=== PATIENT | male | born 1975 ===

== ENCOUNTER 2024-03-15 11:09 | Outpatient (AMB) | payer OTHER, SELFPAY ==
--- NOTE | 2024-03-15 11:17 | A.OFFVIS_ITS ---
Vital Signs 03/15/24 11:26 Height 6 ft 1 in Weight 181 lb 3.52 oz BMI 23.9 BP 120/84 Blood Pressure Location Rt brachial Position Sitting Pulse 74 Pulse Source Pulse Oximeter Pulse Oximetry (%) 100 Oxygen Delivery Method Room Air Intake Visit Reasons: hep c screening Intake Note: Russell presents in office today for a scheduled initial assessment. CC; Pt denies any previous hx of colo. Pt is being seen today for a colo consult as well as hep C screening. Pt denies any sx or concerns at this time that would otherwise warrant a colo. Medical Supervisor Required: No Allergies No Known Allergies Allergy (Verified 03/15/24 11:26) HPI Comments Details: 49 y.o M with PMH of Afib s/p ablation in 2021 not anticoagulation who is referred for colo screen and hep C screen . Pt otherwise is well. No abd pain, N,V, rectal bleeding, diarrhea or un intentional weight loss. No fam hx of colorectal ca in FDRs. In terms of HCV screening, he is unsure why he was referred specifically for that. No high risk behavior or hx of exposure. PFSH Medical History Electrical isolation of left atrial appendage after cardiac ablation procedure for atrial fibrillation A-fib Surgical History History of tonsillectomy Social History Alcohol intake: never Patient Tobacco Use Status: Never used Tobacco Review of Systems Const All systems reviewed & are unremarkable except as noted in HPI and below Physical Exam Vital Signs: Last Vital Signs Pulse 74 03/15/24 11:26 BP 120/84 03/15/24 11:26 Pulse Ox 100 03/15/24 11:26 Oxygen Delivery Method Room Air 03/15/24 11:26 BMI result Body Mass Index 23.9 No apparent distress Nonicteric Abdomen soft, nondistended Alert and oriented x3, normal gait Assessment & Plan Assessment & Plan (1) Encounter for colorectal cancer screening: Code(s): Z12.11 - Encounter for screening for malignant neoplasm of colon; Z12.12 - Encounter for screening for malignant neoplasm of rectum Category: Medical (2) Encounter for hepatitis C screening test for low risk patient: Code(s): Z11.59 - Encounter for screening for other viral diseases Category: Medical Plan At average risk. Discussed both one step and two step screening with pt and he opts for one step i.e colonoscopy. This will be set up on elective basis. Plan: - PEG prep Rxed and instructions reviewed - Pt not on DM meds or blood thinners - [place] to be booked In terms of HCV screening, discussed that from referral notes PCP has already ordered HCV Ab, if thats negative, no further work up is needed. Follow up as needed after colo Medications: New peg 3350-electrolytes 236-22.74-6.74 -5.86 gram (Golytely) as per split prep instructions, until fecal effluent is clear 240 mL PO Q10M 4,000 mL 0RF colonoscopy Coding Level of Care Code New Pt Level 3 (52784) Diagnoses Encounter for colorectal cancer screening Z12.11; Z12.12 Encounter for hepatitis C screening test for low risk patient Z11.59
[2024-03-15 11:26] VITALS: BP 120/84; PULSE 74; O2SAT 100; BMI 23.9
== END 2024-03-15 12:34 | disposition home or self-care (01) ==
PROVIDERS: PCP Family Medicine; Visit Provider Internal Medicine
DX: Z01.818 Encounter for other preprocedural examination (principal); Z12.11 Encounter for screening for malignant neoplasm of colon; Z12.12 Encounter for screening for malignant neoplasm of rectum
CPT/HCPCS: S0285

== ENCOUNTER 2024-08-05 06:07 | Day surgery (SDC) | payer OTHER, SELFPAY ==
[2024-08-03 06:47] VITALS: BMI 23.9
--- NOTE | 2024-08-04 08:44 | HO.ANESPROP2 ---
HPI - Anesthesia Eval Consult details Narrative: 49yo M for Colonoscopy Afib s/p ablation - no anticoag PMFSH Active Problems Active Problems: All Active Problems Encounter for hepatitis C screening test for low risk patient (Acute) Encounter for colorectal cancer screening (Acute) Past Medical History Medical History (Updated 08/03/24 @ 06:49 by Christy Cat, RN) Electrical isolation of left atrial appendage after cardiac ablation procedure for atrial fibrillation A-fib Surgical History Surgical History (Updated 08/03/24 @ 06:48 by Christy Cat RN) History of cardiac ablation for atrial fibrillation History of tonsillectomy Social History Social History Alcohol intake: never Patient Tobacco Use Status: Never used Tobacco Meds Allergies Allergy/AdvReac Type Severity Reaction Status Date / Time No Known Allergies Allergy Verified 03/15/24 11:26 Home Medications ?Medication ?Instructions ?Recorded ?Confirmed ?Last Taken ?Type metoprolol succinate 25 mg 25 mg PO DAILY 03/15/24 Unknown History tablet,extended release 24 hr Exam Height,Weight and Vital Signs: Height 6 ft 1 in Weight 82.1 kg Assessment and Plan Assessment Anesthesia Assessment: Chart Reviewed
[2024-08-05 07:42] VITALS: BMI 24.0
[2024-08-05 07:45] VITALS: BP 124/81; PULSE 92; RESP 16; TEMP 36.8; O2SAT 100
[2024-08-05] MEDS: Lactated Ringers 1,000 ML 100 ML IVCONT (07:46)
--- NOTE | 2024-08-05 07:50 | MHC.SHP ---
Pre-Procedural Eval Section A - 24 Hr Update-Section A only Date of Service: 08/05/24 Section B - Complete if H&P > 30 days Chief Complaint: Encounter for screening for malignant neoplasm of Details of Present Illness: Electrical isolation of left atrial appendage after cardiac ablation procedure for atrial fibrillation A-fib Surgical History History of tonsillectomy Present Medications: see Short Stay Collaborative assessment Allergies: Allergies Allergy/AdvReac Type Severity Reaction Status Date / Time No Known Allergies Allergy Verified 08/05/24 07:12 Review of Systems Review of Systems Comment: Ten point ROS negative Exam Exam Comment: Gen appear: No acute distress HEENT: no icterus Chest: No overt resp distress Abd: soft, nontender, nondistended Psych: Stable affect, answering questions appropriately Neuro: A/Ox3 noted to move all extremities spontaneously Ext: no peripheral edema Plan Diagnosis/Plan: Unchanged I have reviewed the history and physical and performed a pertinent physical examination on my patient. No changes have occurred unless specified. Time Spent With Patient Time: Total time managing care of this patient today ____ minutes.
--- NOTE | 2024-08-05 08:20 | P.OPN-COLO_ITS ---
Colonoscopy Operative Note Operative Note Date of Service: 08/05/24 Narrative: Procedure: Colonoscopy Indication: Screening Endoscopist: Aliyah Short MD Anesthesia Provider: Angeline Villatoro MD Anesthesia type: MAC Instrument: Olympus [id number]-[id number] Consent: Indication, risks vs benefits, and alternatives were discussed with the patient who gave written informed consent to proceed. EKG, pulse, pulse oximetry and blood pressure were monitored throughout the procedure. Please see anesthesia flowsheet. Procedure: The patient was brought to the procedure room and placed in the left lateral decubitus position. IV medications were administered by the anesthesia provider in attendance. A digital rectal exam was performed which was normal. A distal attachment cap was affixed to the tip of the colonoscope which was then inserted through the anus and advanced through the colon to the cecum at 75 c m,and terminal ileum. Appendiceal orifice and ileocecal valve were identified. Mucosa was carefully examined under high definition white light as the instrument was slowly withdrawn in a retrograde panoramic fashion. Retroflexion was performed in rectum. The procedure was not difficult. There were no immediate obvious complications. The quality of the prep was BBPS: 3+2+3 = adequate Withdrawal time 9 minutes. Limitations: No limitations. Findings: Mucosa: Normal to cecum and terminal ileum. Protruding lesions: * Medium internal hemorrhoids without stigmata of recent bleeding. Excavated lesions: * Mild to moderate diverticulosis of left sided colon. Impression: 1. Normal colon mucosa 2. Diverticulosis 3. Internal hemorrhoids Recommendations: - repeat colonoscopy for asymptomatic colorectal cancer screening recommended in 10 years - follow-up in the GI office p.r.n.
--- NOTE | 2024-08-05 08:23 | HO.ANESPROP2 ---
[facility] Active Problems Active Problems: All Active Problems Encounter for hepatitis C screening test for low risk patient (Acute) Encounter for colorectal cancer screening (Acute) Past Medical History Medical History Electrical isolation of left atrial appendage after cardiac ablation procedure for atrial fibrillation A-fib Functional capacity: independent ambulation Family History Family history of problems with anesthesia: No Surgical History Surgical History History of cardiac ablation for atrial fibrillation History of tonsillectomy History of Problems with Anesthesia: No Social History Social History Are you a primary vocational childcare teacher to a significant other at home: No Do you presently have visiting nurse or other home services: No Alcohol intake: never Patient Tobacco Use Status: Never used Tobacco Use of substances other than those prescribed or required for medical reasons: No Are you DNR?: No Advance Directives: No Advance Directives Information Provided: Yes Recently lost weight without trying: No Nutrition Risks: No Nutritional Risk Poor oral hygiene: No Meds Allergies Allergy/AdvReac Type Severity Reaction Status Date / Time No Known Allergies Allergy Verified 08/05/24 07:12 Active Medications: Current Medications Lactated Ringer's (Lr) 1,000 mls @ 100 mls/hr IVCONT .Q10H POLI Last Admin: 08/05/24 07:46 Dose: 100 mls/hr Home Medications ?Medication ?Instructions ?Recorded ?Confirmed ?Last Taken ?Type metoprolol succinate 25 mg 25 mg PO DAILY 03/15/24 08/05/24 08/04/24 History tablet,extended release 24 hr Exam Height,Weight and Vital Signs: Height 6 ft 1 in Weight 82.554 kg Last Vital Signs Temp 98.3 F 08/05/24 07:45 Pulse 92 08/05/24 07:45 Resp 16 08/05/24 07:45 BP 124/81 08/05/24 07:45 Pulse Ox 100 08/05/24 07:45 O2 Del Method Room Air 08/05/24 07:45 Airway Mallampati Class: II TM Dist: >3cm Neck ROM: Full Heart: RRR Lungs: Luis Alfredo Assessment and Plan Assessment Anesthesia Assessment: Anesthesia Plan Discussed and Chart Reviewed Final Anesthetic Review Family History of Problems with Anesthesia: No History of Problems with Anesthesia: No NPO: Yes ASA Class: II Final Preanesthetic Review: Meds/Allgs Chart Reviewed, Consent Obtained/Reviewed and Anes Risks/Benef Reviewed Patient Risk: Low Procedure Risk: Low Anesthetic Plan Anesthetic Plan: MAC: Disposition: Standard PACU
[2024-08-05 08:24] VITALS: BP 94/56; PULSE 96; RESP 16; O2SAT 94
[2024-08-05 08:39] VITALS: BP 104/75; PULSE 85; RESP 16; O2SAT 100
[2024-08-05 08:54] VITALS: BP 105/69; PULSE 78; RESP 16; TEMP 36.1; O2SAT 100
--- NOTE | 2024-08-05 08:57 | HO.POSTANES ---
Post Anesthesia Evaluation Post Anesthesia Evaluation Date of Service: 08/05/24 Vital Signs: Vital Signs Temp Pulse Resp BP Pulse Ox O2 Del Method 08/05/24 08:39 85 16 104/75 100 Room Air 08/05/24 08:24 96 16 94/56 L 94 Room Air 08/05/24 07:45 98.3 F 92 16 124/81 100 Room Air Anesthesia: Monitored Mental Status: Awake Pain Control: Satisfactory Nausea/Vomiting: None Hydration: Adequate Anesthesia-Related Issues: No Anes. Related Issues
== END 2024-08-05 09:14 | disposition home or self-care (01) ==
PROVIDERS: Visit Provider Internal Medicine
PROC: 0DJD8ZZ Inspection of Lower Intestinal Tract, Via Natural or Artificial Opening Endoscopic (ICD-10-PCS; CPT 45378; principal; 2024-08-05 07:30)
DX: Z12.11 Encounter for screening for malignant neoplasm of colon (principal); K57.30 Diverticulosis of large intestine without perforation or abscess without bleeding; K64.8 Other hemorrhoids; I48.91 Unspecified atrial fibrillation; Z98.890 Other specified postprocedural states; Z79.899 Other long term (current) drug therapy
CPT/HCPCS: 45378; J2003; J2704

== ENCOUNTER → 2024-08-05 06:07 | Outpatient (BNV) | payer OTHER, SELFPAY | PROVIDERS: Visit Provider Internal Medicine | DX: Z12.11 Encounter for screening for malignant neoplasm of colon (principal); K57.30 Diverticulosis of large intestine without perforation or abscess without bleeding; K64.8 Other hemorrhoids | CPT/HCPCS: 45378 ==